=== PATIENT | female | born 1950 | race Caucasian/White ===

== ENCOUNTER 2018-07-10 09:25 | Emergency (ER) | payer MEDICARE ==
[2018-07-10 09:56] VITALS: BP 112/78
--- NOTE | 2018-07-10 10:31 | UC ---
Abdominal Pain Female HPI - HPI Summary HPI Summary: Pt c/o intermittent abdominal pain that has been going on for weeks with c/o intermittent constipation and diarrhea. Pt has a hx of IBS had colonoscopy 2 months ago and had 3 polyps removed. Additionally, pt had fever, chills and abdominal pain X 2 days that has resolved. - History of Current Complaint Chief Complaint: UCGI Stated Complaint: STOMACH CRAMPS, DIARRHEA, CONSTIPATION, FEVER Time Seen by Provider: 07/10/18 10:14 Hx Obtained From: Patient Hx Last Menstrual Period: n/a ?: No Onset/Duration: Gradual Onset, Lasting Weeks, Still Present Timing: Intermittent Episodes Lasting: Severity Initially: Mild Severity Currently: Mild Pain Intensity: 0 Location: Diffuse Radiates: No Character: Aching, Burning, Colicy, Cramping, Dull Aggravating Factor(s): Food Alleviating Factor(s): Nothing Associated Signs and Symptoms: Positive: Fever, Constipation, Diarrhea - Risk Factors Ectopic Risk Factor: Negative Ovarian Torsion Risk Factor: Negative Allergies/Adverse Reactions: Allergies Allergy/AdvReac Type Severity Reaction Status Date / Time azithromycin Allergy Intermediate Rash Verified 07/10/18 09:52 PMH/Surg Hx/FS Hx/Imm Hx Previously Healthy: Yes GI/ History: Gastroesophageal Reflux, Other - IBS - Surgical History Surgical History: Yes Surgery Procedure, Year, and Place: 1999 CARDIAC [place]- DOESN'T HAVE ANY CARDS- 1.5 T. 2004 [place]. 2016 BILATERAL CATARACTS [place] - Family History Known Family History: Positive: Cardiac Disease - Social History Occupation: Retired Lives: With Family Alcohol Use: Occasionally Alcohol Amount: FEW DRINKS/MONTH Substance Use Type: None Smoking Status (MU): Former Smoker Type: Cigarettes Amount Used/How Often: 1 ppd + Length of Time of Smoking/Using Tobacco: 45 YRS Have You Smoked in the Last Year: No When Did the Patient Quit Smoking/Using Tobacco: 05/2017 45 YRS quit a few times for short periods, none since 05/2017 - Immunization History Most Recent Influenza Vaccination: 4864-6411 Most Recent Pneumonia Vaccination: 1318-8074 Review of Systems All Other Systems Reviewed And Are Negative: Yes Constitutional: Positive: Fever, Chills Skin: Positive: Negative Eyes: Positive: Negative ENT: Positive: Negative Respiratory: Positive: Negative Cardiovascular: Positive: Negative Gastrointestinal: Positive: Abdominal Pain, Diarrhea Genitourinary: Positive: Negative Motor: Positive: Negative Neurovascular: Positive: Negative Musculoskeletal: Positive: Negative Neurological: Positive: Negative Psychological: Positive: Negative Is Patient Immunocompromised?: No Physical Exam Triage Information Reviewed: Yes Appearance: Well-Appearing, Obese Vital Signs: Initial Vital Signs Temp 98.5 F 07/10/18 09:50 Pulse 92 07/10/18 09:50 Resp 20 07/10/18 09:50 BP 112/78 07/10/18 09:50 Pulse Ox 98 07/10/18 09:50 Vital Signs Reviewed: Yes Eye Exam: Normal ENT Exam: Normal Dental Exam: Normal Neck exam: Normal Respiratory Exam: Normal Cardiovascular Exam: Normal Abdominal Exam: Normal Abdomen Description: Positive: Nontender Bowel Sounds: Positive: Present Musculoskeletal Exam: Normal Neurological Exam: Normal Psychological Exam: Normal Skin Exam: Normal Abd Pain Female Course/Dx - Differential Dx/Diagnosis Differential Diagnosis: Other - gastroenteritis Provider Diagnoses: acute constipation and diarrhea. abdominal pain. IBS exacerbation Discharge - Sign-Out/Discharge Documenting (check all that apply): Patient Departure All imaging exams completed and their final reports reviewed: No Studies - Discharge Plan Condition: Stable Disposition: HOME Patient Education Materials: Irritable Bowel Syndrome (ED), Gas and Bloating ( ED), Chronic Abdominal Pain (ED) Referrals: Yemi Henderson DO [Doctor of Osteopathy] - As Soon As Possible Martha Eason MD [Primary Care Provider] - If Needed - Billing Disposition and Condition Condition: STABLE Disposition: Home
== END 2018-07-10 10:37 | disposition home or self-care (01) ==
LOC: UCCORT 09:25
DX: K58.2 Mixed irritable bowel syndrome (principal); Z87.891 Personal history of nicotine dependence
CPT/HCPCS: 99211; G0463

== ENCOUNTER 2018-11-17 10:19 | Emergency (ER) | payer MEDICARE, OTHER ==
[2018-11-17 11:00] VITALS: BP 135/79
[2018-11-17] MEDS ORDERED: Albuterol 2.5 MG/3 ML NEB.SOL* (0.083%) INH ONE (12:00)
--- NOTE | 2018-11-17 12:31 | UC ---
Respiratory Complaint HPI - HPI Summary HPI Summary: Pt presents with c/o nasalcongsetion, chest congestion, cough and SOB. Pt was given antibiotic ~ [address] and had similar c/o of cough, nasal and chest congestion. Pt reports that her symptoms hanot improved. Pt has COPD only uses Advair as needed along with rescue inhaler. Has not been using either during current illness. - History of Current Complaint Chief Complaint: UCRespiratory Stated Complaint: COUGH Time Seen by Provider: 11/17/18 11:50 Hx Obtained From: Patient Hx Last Menstrual Period: n/a ?: No Onset/Duration: Gradual Onset, Lasting Weeks, Still Present Timing: Constant Severity Initially: Mild Severity Currently: Moderate Pain Intensity: 0 Aggravating Factors: Exertion, Deep Breaths, Recumbent Position Alleviating Factors: Nothing Associated Signs And Symptoms: Positive: URI, Nasal Congestion - Risk Factors Pulmonary Embolism Risk Factors: Negative Cardiac Risk Factors: Negative Pseudomonas Risk Factors: Chronic Lung Disease Tuberculosis Risk Factors: Negative - Allergies/Home Medications Allergies/Adverse Reactions: Allergies Allergy/AdvReac Type Severity Reaction Status Date / Time azithromycin Allergy Intermediate Rash Verified 11/17/18 10:54 PMH/Surg Hx/FS Hx/Imm Hx Previously Healthy: Yes Cardiovascular History: Cardiac Disease Respiratory History: COPD - Surgical History Surgical History: Yes Surgery Procedure, Year, and Place: 1999 CARDIAC [place]- DOESN'T HAVE ANY CARDS- 1.5 T. [place]. 2016 BILATERAL CATARACTS [place] - Family History Known Family History: Positive: None, Cardiac Disease - Social History Occupation: Retired Lives: With Family Alcohol Use: None Alcohol Amount: FEW DRINKS/MONTH Substance Use Type: None Smoking Status (MU): Former Smoker Type: Cigarettes Amount Used/How Often: 1 ppd + Length of Time of Smoking/Using Tobacco: 45 YRS Have You Smoked in the Last Year: No When Did the Patient Quit Smoking/Using Tobacco: 05/2017 45 YRS quit a few times for short periods, none since 05/2017 - Immunization History Most Recent Influenza Vaccination: 0982-6587 Most Recent Pneumonia Vaccination: 0446-3664 Review of Systems All Other Systems Reviewed And Are Negative: Yes Constitutional: Positive: Chills, Fatigue Skin: Positive: Negative Eyes: Positive: Negative ENT: Positive: Sinus Congestion Respiratory: Positive: Cough Cardiovascular: Positive: Negative Gastrointestinal: Positive: Negative Genitourinary: Positive: Negative Motor: Positive: Negative Neurovascular: Positive: Negative Musculoskeletal: Positive: Negative Neurological: Positive: Negative Psychological: Positive: Negative Is Patient Immunocompromised?: No Physical Exam Triage Information Reviewed: Yes Appearance: Well-Appearing, Obese Vital Signs: Initial Vital Signs Temp 97.8 F 11/17/18 10:56 Pulse 86 11/17/18 10:56 Resp 22 11/17/18 10:56 BP 135/79 11/17/18 10:56 Pulse Ox 98 11/17/18 10:56 Vital Signs Reviewed: Yes Eye Exam: Normal ENT: Positive: Nasal congestion Dental Exam: Normal Neck exam: Normal Respiratory Exam: Other Respiratory: Positive: Decreased breath sounds Cardiovascular Exam: Normal Musculoskeletal Exam: Normal Neurological Exam: Normal Psychological Exam: Normal Skin Exam: Normal Diagnostics - Radiology No standard instances Radiology Interpretation Completed By: Radiologist - IMPRESSION: HYPERINFLATION , CONSISTENT WITH COPD. NO ACTIVE CARDIOPULMONARY DISEASE. Respiratory Course/Dx - Differential Dx/Diagnosis Differential Diagnosis/HQI/PQRI: Bronchitis, Exacerbation Of COPD, Influenza Provider Diagnosis: COPD exacerbation, Viral syndrome Discharge - Sign-Out/Discharge Documenting (check all that apply): Patient Departure All imaging exams completed and their final reports reviewed: Yes - Discharge Plan Condition: Stable Disposition: HOME Prescriptions: Benzonatate CAP* [Tessalon 100 MG CAP*] 200 mg PO Q8H PRN #30 cap PRN Reason: Cough Cetirizine* [ZyrTEC 10 MG TAB*] 10 mg PO DAILY #10 tab predniSONE TAB* [Deltasone 10 MG TAB*] 30 mg PO DAILY #12 tab Patient Education Materials: Viral Syndrome (ED) Referrals: Martha Eason MD [Primary Care Provider] - If Needed Additional Instructions: Please follow up with your PCP as needed. - Billing Disposition and Condition Condition: STABLE Disposition: Home
== END 2018-11-17 12:41 | disposition home or self-care (01) ==
LOC: UCCORT 10:19
DX: J44.1 Chronic obstructive pulmonary disease with (acute) exacerbation (principal); B34.9 Viral infection, unspecified; Z87.891 Personal history of nicotine dependence; Z88.1 Allergy status to other antibiotic agents
CPT/HCPCS: 71046; 99212; G0463